=== PATIENT | male | born 1935 | race Caucasian/White ===

== ENCOUNTER 2021-06-09 17:50 | Inpatient (IN) ==
[2021-06-10] MEDS ORDERED: Acetaminophen 325 MG TABLET PO PRN (02:07)
[2021-06-10] MEDS ORDERED: Melatonin 3 MG TABLET PO PRN (02:07)
[2021-06-10] MEDS ORDERED: Naloxone 0.4 MG/ML INJ IVP PRN (02:07)
[2021-06-10] MEDS ORDERED: Ondansetron 4 MG/2 ML VIAL IVP PRN (02:07)
[2021-06-10] MEDS ORDERED: *HR* Heparin 5,000 UNIT/ML VIAL IVP PRN ×2 (02:49)
[2021-06-10] MEDS ORDERED: Heparin 25,000 UNIT/250 ML 25,000 UNIT/250 ML IV.SOLN IVC SCH (03:00)
[2021-06-10 06:05] LABS: Basophils % 0.2 %; Mean Platelet Volume 10.5 fL (9.4-12.4)
[2021-06-10 06:06] LABS: Basophils # 0.1 K/mcL (0.0-0.2); Eosinophils # 0.2 K/mcL (0.0-0.6); Eosinophils % 0.5 %; Hematocrit 39.7 % (37.5-50.1); Hemoglobin 13.3 g/dL (12.9-16.9); Immature Granulocytes % 1.2 % (0-4); Lymphocytes # 1.2 K/mcL (0.6-4.6); Lymphocytes % 3.9 %; Mean Corpuscular HGB Conc 33.5 g/dL (31.6-35.5); Mean Corpuscular Hemoglobin 32.1 pg (28.0-33.3); Mean Corpuscular Volume 95.9 fL (83.0-100.0); Monocytes # 2.3 K/mcL (0.0-1.3); Monocytes % 7.8 %; Neutrophils # 25.9 K/mcL (1.6-8.9); Platelet Count 199 K/mcL (140-400); Red Blood Count 4.14 M/mcL (4.19-5.50); Red Cell Distribution Width 13.5 % (11.5-14.5); Segmented Neutrophils % 86.4 %
[2021-06-10 06:16] LABS: Heparin anti-factor XA UFH 0.08 IU/mL (0.30-0.70); INR 1.3; Prothrombin Time 14.9 Seconds (9.4-12.1)
[2021-06-10 06:36] LABS: Alanine Aminotransferase 96 Units/L (7-52); Albumin 3.3 g/dL (3.5-5.7); Albumin/Globulin Ratio 1.4 (1.1-2.2); Alkaline Phosphatase 176 Units/L (34-104); Aspartate Amino Transferase 69 Units/L (13-39); BUN/Creatinine Ratio 34 (6-26); Bilirubin,Total 0.5 mg/dL (0.3-1.0); Blood Urea Nitrogen 40 mg/dL (8-23); Calcium 8.2 mg/dL (8.6-10.3); Carbon Dioxide 19 mEq/L (23-29); Chloride 106 mEq/L (98-107); Globulin 2.3 g/dL (2.4-3.5); Glucose 98 mg/dL (70-105); Magnesium 1.8 mg/dL (1.6-2.6); Osmolality,Calculated 288 (280-300); Phosphorous 2.1 mg/dL (2.7-4.5); Potassium 3.7 mEq/L (3.5-5.1); Sodium 134 mEq/L (136-145); Total Protein 5.6 g/dL (6.4-8.9); Troponin I 0.13 ng/mL (< 0.04); eGFR For African Americans > 60 (> 60); eGFR For Non-African Americans 59 (> 60)
[2021-06-10 06:40] LABS: Platelet Estimate Normal (Normal)
[2021-06-10 08:58] LABS: Troponin I 0.1 ng/mL (< 0.04)
[2021-06-10] MEDS ORDERED: Perflutren Lipid Microsphere 1.3 ML in 0.9 % Sodium Chloride 8.7 ML IVP PRN (09:42)
[2021-06-10] MEDS ORDERED: *HR* Enoxaparin 40 MG/0.4 ML SYRINGE SQ ONE (09:54)
[2021-06-10] MEDS: cefTRIAXone 1,000 MG in Water for inj. (sterile) 10 ML IVP SCH ×2 (09:56→10:03)
[2021-06-10 10:25] LABS: Bilirubin,Urine Negative (Negative); Blood,Urine Moderate (Negative); Clarity,Urine Clear (Clear); Color,Urine Yellow (Yellow); Glucose,Urine (UA) Normal (Normal); Ketones,Urine Negative (Negative); Leukocyte Esterase,Urine Moderate (Negative); Nitrite,Urine Negative (Negative); Protein,Urine Trace mg/dL (Neg-Trace); Specific Gravity,Urine 1.015 (1.010-1.025); Urobilinogen,Urine Normal (Normal)
[2021-06-10 10:31] LABS: WBC,Urine 50-100 per hpf (0-3)
[2021-06-10] MEDS: Aspirin 81 MG TAB.CHEW PO SCH (11:46)
[2021-06-10] MEDS: cefTRIAXone 2,000 MG in Water for inj. (sterile) 20 ML IVP SCH (11:46)
[2021-06-10] MEDS ORDERED: traZODone 50 MG TABLET PO PRN (20:06)
[2021-06-10] MEDS: clonazePAM 0.5 MG TABLET PO SCH (20:41)
[2021-06-10] MEDS ORDERED: *HR* LORazepam 2 MG/ML VIAL IVP ONE (23:52)
[2021-06-11] MEDS ORDERED: *HR* Enoxaparin 40 MG/0.4 ML SYRINGE SQ SCH (06:00)
[2021-06-11 07:09] LABS: Hematocrit 40.2 % (37.5-50.1); Mean Corpuscular HGB Conc 32.3 g/dL (31.6-35.5); Mean Corpuscular Volume 95.7 fL (83.0-100.0); Mean Platelet Volume 10.4 fL (9.4-12.4); Platelet Count 200 K/mcL (140-400); Red Cell Distribution Width 13.7 % (11.5-14.5); White Blood Count 17.6 K/mcL (4.3-11.1)
[2021-06-11] MEDS: Aspirin 81 MG TAB.CHEW PO SCH (07:42)
[2021-06-11] MEDS: clonazePAM 0.5 MG TABLET PO SCH (07:42)
[2021-06-11] MEDS: cefTRIAXone 2,000 MG in Water for inj. (sterile) 20 ML IVP SCH (07:46)
[2021-06-11 07:57] LABS: Alanine Aminotransferase 70 Units/L (7-52); Albumin 3.2 g/dL (3.5-5.7); Albumin/Globulin Ratio 1.4 (1.1-2.2); Alkaline Phosphatase 161 Units/L (34-104); Aspartate Amino Transferase 35 Units/L (13-39); BUN/Creatinine Ratio 31 (6-26); Bilirubin,Direct 0.1 mg/dL (0.0-0.2); Bilirubin,Indirect 0.3 mg/dL (0.0-1.0); Bilirubin,Total 0.4 mg/dL (0.3-1.0); Blood Urea Nitrogen 32 mg/dL (8-23); Calcium 8.4 mg/dL (8.6-10.3); Carbon Dioxide 24 mEq/L (23-29); Chloride 109 mEq/L (98-107); Globulin 2.3 g/dL (2.4-3.5); Glucose 94 mg/dL (70-105); Magnesium 1.9 mg/dL (1.6-2.6); Osmolality,Calculated 297 (280-300); Sodium 140 mEq/L (136-145); Total Protein 5.5 g/dL (6.4-8.9); eGFR For African Americans > 60 (> 60); eGFR For Non-African Americans > 60 (> 60)
[2021-06-11 11:03] VITALS: BP 146/77; PULSE 56; TEMP 97.4; O2SAT 98
== END 2021-06-11 14:22 | disposition home or self-care (01) | DRG 871 ==
LOC: 2ANU → EDBD → SUATTDRO 06-10 01:32 → 2ANU 06-11 08:52
PROVIDERS: ADMIT Hospitalist; ATTEND Internal Medicine